=== PATIENT | female | born 1970 | race Caucasian/White ===

== ENCOUNTER 2018-02-06 11:55 | Day surgery (SDC) | payer BC ==
[2018-02-06] MEDS: LIDOCAINE 1% (MPF) 30 ML INJ
[~2018-02-06 11:55] MED LIST: BUPIVACAINE 0.25%/EPI (MDV) 50 ML VIAL INJ; CEFAZOLIN 1 GM/50 ML (PMX) 50 ML IVPB; SOD CHLORIDE 0.9% 1,000 ML IV
[2018-02-06 13:06] LABS: INR 0.93; PROTIME 12.5 Sec (11.9-14.9)
[2018-02-06 13:07] LABS: PARTIAL THROMBOPLASTIN TIME 37.2 Sec (25.0-35.0)
[2018-02-06] MEDS ORDERED: MIDAZOLAM 1 MG/ML 2 ML INJ (15:00)
[2018-02-06] MEDS ORDERED: CEFAZOLIN 1 GM INJ (15:10)
[2018-02-06] MEDS ORDERED: morphine 10 MG INJ (16:15)
[2018-02-06] MEDS ORDERED: GLYCOPYRROLATE 0.4 MG INJ (16:20)
[2018-02-06] MEDS ORDERED: PROPOFOL 20 ML (16:20)
[2018-02-06] MEDS ORDERED: NEOSTIGMINE 3 MG/3 ML SYRINGE (16:20)
[2018-02-06] MEDS ORDERED: LIDOCAINE 2% (SDV) 5 ML INJ (16:20)
[2018-02-06] MEDS ORDERED: ROCURONIUM 50 MG INJ (16:20)
[2018-02-06] MEDS ORDERED: KETOROLAC 30 MG INJ (16:24)
[2018-02-06] MEDS ORDERED: DIPHENHYDRAMINE 50 MG INJ IV (17:00)
[2018-02-06] MEDS ORDERED: FENTAnyl 50 MCG/ML VIAL IV (17:00)
[2018-02-06] MEDS ORDERED: ONDANSETRON 4 MG INJ IV (17:00)
[2018-02-06] MEDS ORDERED: MEPERIDINE 25 MG INJ IV (17:00)
[2018-02-06] MEDS ORDERED: METOCLOPRAMIDE 10 MG INJ IV (17:00)
[2018-02-06] MEDS ORDERED: HYDROCODONE/APAP (5/325) TAB PO (17:00)
[2018-02-06] MEDS ORDERED: HYDROmorphONE (0.2 MG/ML) 10ML SYG IV ×2 (17:00)
== END 2018-02-06 18:25 | disposition home or self-care (01) ==
LOC: SDS 11:55
DX: K80.10 Calculus of gallbladder with chronic cholecystitis without obstruction (principal); E66.9 Obesity, unspecified; Z68.31 Body mass index [BMI] 31.0-31.9, adult
CPT/HCPCS: 47562; 85610; 85730; 88304